=== PATIENT | female | born 1985 | race Asian ===

== ENCOUNTER → 2022-09-02 | Outpatient (REF) | payer OTHER | LOC: M LAB REF 13:05 | PROVIDERS: ATTEND Nurse Practitioner Family | DX: K21.9 Gastro-esophageal reflux disease without esophagitis (principal); R13.10 Dysphagia, unspecified ==

== ENCOUNTER → 2022-09-02 | Outpatient (CLI) | payer OTHER ==
[2022-09-02 15:33] LABS: THYROID STIMULATING HORMONE 1.807 uIU/ML (0.55-4.78)
[2022-09-02 15:34] LABS: FREE T4 1.11 NG/DL (0.89-1.76)
== END ==
LOC: M PLALAB 12:41
PROVIDERS: ATTEND Nurse Practitioner Family
DX: R13.10 Dysphagia, unspecified (principal)

== ENCOUNTER → 2022-09-27 | Outpatient (REF) | payer OTHER ==
[2022-09-28 14:23] LABS: GC DNA AMPLIFICATION NEGATIVE (NEGATIVE)
== END ==
LOC: M LAB REF 16:51
PROVIDERS: ATTEND Nurse Practitioner Family
DX: Z01.419 Encounter for gynecological examination (general) (routine) without abnormal findings (principal); Z11.3 Encounter for screening for infections with a predominantly sexual mode of transmission

== ENCOUNTER → 2022-10-05 | Outpatient (CLI) | payer OTHER ==
[2022-10-05 14:49] LABS: HEPATITIS B SURFACE ANTIBODY NEGATIVE (POSITIVE)
[2022-10-05 15:01] LABS: HEPATITIS B SURFACE ANTIGEN NEGATIVE (NEGATIVE)
== END ==
LOC: M PLALAB 11:43
PROVIDERS: ATTEND Nurse Practitioner Family
DX: Z11.3 Encounter for screening for infections with a predominantly sexual mode of transmission (principal)

== ENCOUNTER → 2022-11-15 | Outpatient (CLI) | payer OTHER ==
[~2022-11-15] MED LIST: E-Z-GAS II EFFERVESCENT PACKET (SODIUM BICARB./CITRIC ACID/SIMETHICONE) As Ordered ONE; E-Z-HD 98% w/w 340GM SUSP BTL As Ordered ONE; E-Z-PAQUE 96% w/w SUSP 176GM BTL As Ordered ONE; ISOVUE-370 76% 100ML VIAL As Ordered ONE
== END ==
LOC: M RAD 07:23
PROVIDERS: ATTEND Otolaryngology
DX: J31.0 Chronic rhinitis (principal); R13.10 Dysphagia, unspecified